=== PATIENT | female | born 1970 | race Caucasian/White ===

== ENCOUNTER → 2023-08-27 14:28 | Outpatient (CLI) | payer BC, SELFPAY ==
--- NOTE | 2023-08-27 | DI.MRI.S_ITS ---
PROCEDURE: MR CERVICAL SPINE WO CON INDICATIONS: Spinal stenosis, cervical region TECHNIQUE: Noncontrast sagittal T1 spin echo and T2 fast spin echo, sagittal STIR, foraminal oblique sagittal T2 fast spin echo, and axial gradient echo or T2 fast spin echo through the cervical spine. COMPARISON: [facility] Outside Film, MR, MR CERVICAL SPINE WITHOUT CONTRAST, 09/20/2020, 9:40. [facility] [place], CR, XR CERVICAL SPINE 2 OR 3 VIEWS, 06/30/2023, 13:41. FINDINGS: Image quality: Excellent. Alignment and Curvature: There is normal bony alignment. Bone Marrow: Marrow demonstrates normal overall signal. Spinal Cord: Visualized spinal cord has normal size and signal. No cerebellar tonsillar herniation. Paraspinous Soft Tissues: Left thyroid 1.7 cm [id number] lesion. Prevertebral soft tissues are normal in thickness. C2-C3: No significant spinal canal stenosis or neural foraminal narrowing. C3-C4: Mild bilateral uncovertebral joint and facet hypertrophy result in mild narrowing of the bilateral neural foramina without significant spinal canal stenosis. C4-C5: Disc desiccation and mild posterior disc-osteophyte complex as well as bilateral uncovertebral joint and facet hypertrophy. Findings result in moderate to severe left and mild right neural foraminal narrowing without significant spinal canal stenosis. C5-C6: Disc desiccation and loss of disc space height with posterior disc-osteophyte complex and bilateral uncovertebral joint and facet hypertrophy. Findings result in moderate to severe right and moderate left neural foraminal narrowing as well as mild narrowing of the central spinal canal. C6-C7: Location and loss of disc space height with posterior disc-osteophyte complex and bilateral uncovertebral joint and facet hypertrophy. Findings result in moderate to severe right and moderate left neural foraminal narrowing and mild narrowing of the central spinal canal. C7-T1: No significant spinal canal stenosis or neural foraminal narrowing. IMPRESSION: 1. Multilevel degenerative disc disease, uncovertebral joint hypertrophy, and facet hypertrophy as described in detail in the body report. No high-grade narrowing of the spinal canal. Findings have mildly progressed when compared to the prior MRI from 09/20/2020. 2. Multifocal high-grade neural foraminal narrowing including at the C4-5 level on the left, and the C5-6 and C6-7 levels on the right. 3. Left thyroid 1.7 cm nodule. Recommend thyroid ultrasound for further evaluation. Approved by: Stevo Hand M.D. on 08/27/2023 at 20:33
== END ==
PROVIDERS: PCP Family Medicine; Referring Provider Physical Medicine & Rehabilitation; Visit Provider Physical Medicine & Rehabilitation
DX: M48.02 Spinal stenosis, cervical region (principal); M50.321 Other cervical disc degeneration at C4-C5 level; M47.812 Spondylosis without myelopathy or radiculopathy, cervical region; E04.1 Nontoxic single thyroid nodule
CPT/HCPCS: 72141

== ENCOUNTER → 2023-11-15 13:36 | Outpatient (CLI) | payer BC, SELFPAY ==
--- NOTE | 2023-11-15 13:38 | DI.US.S_ITS ---
PROCEDURE: US THYROID INDICATIONS: CERVICALGIA TECHNIQUE: Real-time scanning was performed of the thyroid gland, with image documentation. COMPARISON: None. FINDINGS: Thyroid: Right lobe measures 5.3 x 1.7 x 1.4 cm. Left lobe measures 4.9 x 1.4 x 1.7 cm. Isthmus is 0.25 cm thick. Echotexture is homogeneous. Nodule number: 1 Location: Mid pole right thyroid lobe Size: 0.6 x 0.6 x 0.6 cm Composition: Solid Echogenicity: Hypoechoic Shape: Wider than tall Margins: Smooth Echogenic foci: None Total points: 4 ACR TI-RADS category: Moderately suspicious. Nodule number: 2 Location: Lower pole left thyroid lobe Size: 2.3 x 1.5 x 1.5 cm Composition: Predominantly solid Echogenicity: Isoechoic Shape: Wider than tall Margins: Irregular/lobulated Echogenic foci: None Total points: 6 ACR TI-RADS category: Moderately suspicious IMPRESSION: 1. Moderately suspicious bilateral thyroid nodules as described above. Suggest fine-needle aspiration of the lower pole left thyroid lobe nodule for further evaluation. ACR TI-RADS definitions and recommendations: TI-RADS 1 (benign): 0 points. FNA not needed. TI-RADS 2 (not suspicious): 2 points. FNA not needed. TI-RADS 3 (mildly suspicious): 3 points. * FNA if 2.5 cm or larger, follow up if 1.5 cm or larger (at 1, 3, and 5 years). TI-RADS 4 (moderately suspicious): 4-6 points. * FNA if 1.5 cm or larger, follow up if 1 cm or larger (at 1, 2, 3, and 5 years). TI-RADS 5 (highly suspicious): 7 points or more. * FNA if 1 cm or larger, follow up if 0.5 cm or larger (every year for 5 years). Dictated by: Deepak Freire M.D. on 11/15/2023 at 17:03 Approved by: Deepak Freire M.D. on 11/15/2023 at 17:06
== END ==
PROVIDERS: PCP Family Medicine; Referring Provider Physical Medicine & Rehabilitation; Visit Provider Physical Medicine & Rehabilitation
DX: E04.2 Nontoxic multinodular goiter (principal); M54.2 Cervicalgia
CPT/HCPCS: 76536

== ENCOUNTER → 2023-12-29 13:50 | Outpatient (CLI) | payer BC, SELFPAY ==
--- NOTE | 2023-12-29 | DI.US.S_ITS ---
PROCEDURE: US FINE NEEDLE ASPIRATION INDICATIONS: THYROID MASS TECHNIQUE: The indications, alternatives, benefits, risks, and complications of the procedure were explained to the patient. Written informed consent was obtained and placed in the chart. The thyroid region was examined sonographically and a site was chosen for ultrasound guided percutaneous sampling. The skin was prepared and draped in the usual fashion, and anesthetized with 1% lidocaine infiltrated from the skin down to the thyroid gland. Multiple passes were then performed, with contents emptied into an appropriate pathology specimen container. A bandage was applied to the area of access at completion of the study. It was noted on the sonographic preliminary examination the nodule was vascular. During the biopsy much of what was obtained was associated with the the presence of blood. COMPARISON: None. FINDINGS: Location(s) of lesion(s) sampled: 1 [place]: 22 and 25 gauge hypodermic needles. Number of passes: 6 Medications: 1% lidocaine for local anaesthesia. Complications: None. IMPRESSION: Successful ultrasound-guided thyroid nodule fine needle aspiration, with cytology results pending. Please see chart below for management recommendations based on cytology results. [place] [facility] ReportingRecommendationsNon-diagnostic* Repeat US-guided FNA, with on-site cytology evaluation if possible. * Repeated non-diagnostic nodules without high suspicion US features: close observation vs surgical consult. * Consider surgery if nodule has high suspicion US features, grows >20% in 2 dimensions on followup, or patient has clinical risk factors for malignancy. Benign* If nodule has high suspicion US features: repeat US and FNA within 12 months. * If nodule has low to intermediate suspicion US features: repeat US at 12-24 months. If nodule grows (20% increase in at least 2 dimensions, with minimal increase of 2 mm or >50% change in volume), or development of new suspicious US features, then repeat FNA or continue followup. * If nodule has very low suspicion US features: followup US at >24 months. Atypia of undetermined significance, follicular lesion of undetermined significanceRepeat FNA, molecular testing, followup US, or surgical consult.Follicular neoplasm, suspicious for follicular neoplasmSurgical consult; also consider molecular testing. Suspicious for malignancySurgical consult.MalignantSurgical consult. Dictated by: Erick Tyler M.D. on 12/30/2023 at 10:29 Approved by: Erick Tyler M.D. on 12/30/2023 at 10:31
--- NOTE | 2023-12-29 15:32 | PATH_ITS ---
Note [facility] Accession Number: [id number] TESTS RESULT FLAG UNITS REF RANGE LAB Clinician Provided Cytology Information No. of containers..02 Previously Prepared Cytology Slide 35 Unknown Storage/container code(s) Source: LEFT THYROID MASS DIAGNOSIS: LEFT THYROID MASS BENIGN. [place] CATEGORY II. SPECIMEN IS SATISFACTORY, BUT LIMITED BY LOW CELLULARITY. IT CONSISTS OF SCANT, BENIGN FOLLICULAR CELLS, RARE HEMOSIDERIN-LADEN MACROPHAGES, SCANT COLLOID, AND BLOOD. THIS PATTERN IS MOST CONSISTENT WITH FOLLICULAR NODULAR DISEASE. PLEASE CORRELATE WITH CLINICAL AND IMAGING FINDINGS. Pathologist ICD10: E04.1, E07.89 Clinical history: Thyroid: Right lobe measures 5.3 x 1.7 x 1.4 cm. Left lobe measures 4.9 x 1.4 x 1.7 cm. Isthmus is 0.25 cm thick. Echotexture is homogeneous. Nodule number: 2 Location: Lower pole left thyroid lobe Size: 2.3 x 1.5 x 1.5 cm Composition: Predominantly solid Echogenicity: Isoechoic Shape: Wider than tall Margins: Irregular/lobulated Echogenic foci: None Total points: 6 ACR TI-RADS category: Moderately suspicious Signed out by: Carmen Moore MD, Pathologist NPI- [id number] Performed by: Oc Coleman, Administrative Manager ([facility]) Gross description: 30 CC, RED, HAZY RECIEVED: IN CYTOLYT WITH 6 ALCOHOL FIXED AND 6 QUICK STAINED SLIDES ALSO 1 RNA VIAL WILL ON 06-15-2024.VO /VDU 12/30/2023 0739 Local FLAG LEGEND: L-Low Normal,H-High Normal,LL-Alert Low,HH-Alert High <-Panic Low,>-Panic High,A-Abnormal,AA-Critical Abnormal Performed at: [address] [address], [place] [address] Afshin Hubbard MD, Performed at: [address] [address], [place], [place] [id number] MD Afshin Hubbard MD Phone: [phone]
== END ==
PROVIDERS: PCP Family Medicine; Referring Provider Family Medicine; Visit Provider Family Medicine
DX: E07.89 Other specified disorders of thyroid (principal); E04.1 Nontoxic single thyroid nodule
CPT/HCPCS: 10005